=== PATIENT | female | born 1955 | race Caucasian/White ===

== ENCOUNTER 2023-04-01 06:42 | Outpatient (RCR) | payer MEDICARE, OTHER, SELFPAY | END 2023-04-01 23:59 | disposition home or self-care (01) | LOC: RST 06:42 | PROVIDERS: ATTENDING PHYSICIAN Student in an Organized Health Care Education/Training Program | DX: I69.318 Other symptoms and signs involving cognitive functions following cerebral infarction (principal); I69.328 Other speech and language deficits following cerebral infarction | CPT/HCPCS: 96125; 97167 ==

== ENCOUNTER 2023-04-27 07:12 | Outpatient (RCR) | payer MEDICARE, OTHER, SELFPAY | END 2023-04-27 23:59 | disposition home or self-care (01) | LOC: RPT 07:12 | PROVIDERS: ATTENDING PHYSICIAN Student in an Organized Health Care Education/Training Program | DX: I69.318 Other symptoms and signs involving cognitive functions following cerebral infarction (principal); I69.328 Other speech and language deficits following cerebral infarction; G20.A1 Parkinson's disease without dyskinesia, without mention of fluctuations; M54.31 Sciatica, right side | CPT/HCPCS: 97110; 97112; 97116; 97129; 97130; 97140; 97163; 97530; 97535 ==

== ENCOUNTER 2023-06-02 10:05 | Outpatient (RCR) | payer MEDICARE, OTHER, SELFPAY | END 2023-06-02 23:59 | disposition home or self-care (01) | LOC: RPT 10:05 | PROVIDERS: ATTENDING PHYSICIAN Student in an Organized Health Care Education/Training Program | DX: G20.A1 Parkinson's disease without dyskinesia, without mention of fluctuations (principal); M54.31 Sciatica, right side; I69.398 Other sequelae of cerebral infarction; Z73.6 Limitation of activities due to disability; I69.318 Other symptoms and signs involving cognitive functions following cerebral infarction; I69.328 Other speech and language deficits following cerebral infarction | CPT/HCPCS: 97110; 97112; 97129; 97130; 97530; 97535 ==

== ENCOUNTER 2023-06-30 09:11 | Outpatient (RCR) | payer MEDICARE, OTHER, SELFPAY | END 2023-06-30 23:59 | disposition home or self-care (01) | LOC: RPT 09:11 | PROVIDERS: ATTENDING PHYSICIAN Student in an Organized Health Care Education/Training Program | DX: I69.318 Other symptoms and signs involving cognitive functions following cerebral infarction (principal); I69.328 Other speech and language deficits following cerebral infarction; Z73.6 Limitation of activities due to disability | CPT/HCPCS: 97110; 97129; 97130; 97530; 97535 ==

== ENCOUNTER 2023-07-07 09:17 | Outpatient (RCR) | payer MEDICARE, OTHER, SELFPAY | END 2023-07-07 12:32 | disposition home or self-care (01) | LOC: RPT 09:17 | PROVIDERS: ATTENDING PHYSICIAN Student in an Organized Health Care Education/Training Program | DX: I69.318 Other symptoms and signs involving cognitive functions following cerebral infarction (principal); I69.328 Other speech and language deficits following cerebral infarction; Z73.6 Limitation of activities due to disability | CPT/HCPCS: 97129; 97130; 97530; 97535 ==

== ENCOUNTER → 2023-07-20 10:16 | Outpatient (REF) | payer MEDICARE, OTHER, SELFPAY | LOC: HWRAD 10:16 | PROVIDERS: ATTENDING PHYSICIAN Student in an Organized Health Care Education/Training Program | DX: N95.1 Menopausal and female climacteric states (principal); Z12.31 Encounter for screening mammogram for malignant neoplasm of breast; Z78.0 Asymptomatic menopausal state | CPT/HCPCS: 77063; 77067; 77080 ==

== ENCOUNTER 2023-07-26 13:13 | Day surgery (SDC) | payer MEDICARE, OTHER, SELFPAY ==
[2023-07-26 13:37] VITALS: BMI 16.6
--- NOTE | 2023-07-26 15:23 | ITS.CL.IMPLP ---
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
Implant Loop
Procedure Report:
ILR implant
Date of Procedure: July 26, 2023
Patient : 1955
Procedure: Insertable Loop Recorder implant
Indication: Cryptogenic stroke
Implant: Reveal Linq 1: [employer]; Model# LNQ22 ; Serial# [id number]
Technique: The patient was prepped and draped in the usual fashion. Local anesthetic was applied to the left prepectoral subcutaneous tissue. A subcutaneous pocket was created with blunt dissection. Hemostasis was excellent. The device was
placed in the pocket. The skin was closed with steri-strips. The estimated blood loss was minimal. There were no complications.
Final Programming: FVT 231 30/40 beats
VT 176 16 beats
Asystole 3 sec
Manuel 30 bpm for 4 beats
AF On AF only.
Conclusion: Uncomplicated insertable loop implant.
Recommendation: Routine Reveal care.
cc: Dr. Berny Hu
== END 2023-07-26 15:18 | disposition home or self-care (01) ==
LOC: CATH 13:13
PROVIDERS: ATTENDING PHYSICIAN Internal Medicine Cardiovascular Disease; FAMILY PHYSICIAN Student in an Organized Health Care Education/Training Program
DX: Z09 Encounter for follow-up examination after completed treatment for conditions other than malignant neoplasm (principal); Z86.73 Personal history of transient ischemic attack (TIA), and cerebral infarction without residual deficits
CPT/HCPCS: 33285; C1764

== ENCOUNTER 2024-03-30 15:42 | Outpatient (RCR) | payer MEDICARE, OTHER, SELFPAY | END 2024-03-30 23:59 | disposition home or self-care (01) | LOC: RPT 15:42 | PROVIDERS: ATTENDING PHYSICIAN Student in an Organized Health Care Education/Training Program | DX: G20.A1 Parkinson's disease without dyskinesia, without mention of fluctuations (principal); M54.31 Sciatica, right side; Z73.6 Limitation of activities due to disability | CPT/HCPCS: 97010; 97110; 97112; 97163; 97530 ==

== ENCOUNTER 2024-04-18 09:56 | Outpatient (RCR) | payer MEDICARE, OTHER, SELFPAY | END 2024-04-18 23:59 | disposition home or self-care (01) | LOC: RPT 09:56 | PROVIDERS: ATTENDING PHYSICIAN Student in an Organized Health Care Education/Training Program | DX: G20.A1 Parkinson's disease without dyskinesia, without mention of fluctuations (principal); M54.31 Sciatica, right side; Z73.6 Limitation of activities due to disability | CPT/HCPCS: 97010; 97110; 97140; 97530 ==

== ENCOUNTER 2024-05-11 06:23 | Day surgery (SDC) | payer MEDICARE, OTHER, SELFPAY | END 2024-05-11 12:02 | disposition home or self-care (01) | LOC: GI 06:23 | PROVIDERS: ATTENDING PHYSICIAN Internal Medicine | DX: Z12.11 Encounter for screening for malignant neoplasm of colon (principal); D12.8 Benign neoplasm of rectum; K63.5 Polyp of colon; Z86.0101 Personal history of adenomatous and serrated colon polyps; Z98.890 Other specified postprocedural states | CPT/HCPCS: 45385; 88305 ==

== ENCOUNTER 2024-05-30 08:11 | Outpatient (RCR) | payer MEDICARE, OTHER, SELFPAY | END 2024-05-30 23:59 | disposition home or self-care (01) | LOC: RST 08:11 | PROVIDERS: ATTENDING PHYSICIAN Student in an Organized Health Care Education/Training Program | DX: R47.1 Dysarthria and anarthria (principal); R47.89 Other speech disturbances; G20.A1 Parkinson's disease without dyskinesia, without mention of fluctuations | CPT/HCPCS: 92507; 92522 ==

== ENCOUNTER 2024-06-08 13:38 | Outpatient (RCR) | payer MEDICARE, OTHER, SELFPAY | END 2024-06-08 23:59 | disposition home or self-care (01) | LOC: RST 13:38 | PROVIDERS: ATTENDING PHYSICIAN Student in an Organized Health Care Education/Training Program | DX: R47.89 Other speech disturbances; R47.1 Dysarthria and anarthria; G20.A1 Parkinson's disease without dyskinesia, without mention of fluctuations; R13.12 Dysphagia, oropharyngeal phase; I69.318 Other symptoms and signs involving cognitive functions following cerebral infarction; I69.311 Memory deficit following cerebral infarction; I69.314 Frontal lobe and executive function deficit following cerebral infarction | CPT/HCPCS: 92526; 92610 ==

== ENCOUNTER → 2024-07-06 09:49 | Outpatient (REF) | payer MEDICARE, OTHER, SELFPAY | LOC: RST 09:49 | PROVIDERS: ATTENDING PHYSICIAN Student in an Organized Health Care Education/Training Program | DX: R13.12 Dysphagia, oropharyngeal phase (principal) | CPT/HCPCS: 74230; 92611 ==

== ENCOUNTER 2024-07-19 09:39 | Outpatient (RCR) | payer MEDICARE, OTHER, SELFPAY | END 2024-07-19 23:59 | disposition home or self-care (01) | LOC: RST 09:39 | PROVIDERS: ATTENDING PHYSICIAN Student in an Organized Health Care Education/Training Program | DX: G20.A1 Parkinson's disease without dyskinesia, without mention of fluctuations (principal); R47.1 Dysarthria and anarthria; R47.89 Other speech disturbances; R13.12 Dysphagia, oropharyngeal phase; I69.318 Other symptoms and signs involving cognitive functions following cerebral infarction; I69.311 Memory deficit following cerebral infarction; I69.314 Frontal lobe and executive function deficit following cerebral infarction | CPT/HCPCS: 92526 ==

== ENCOUNTER 2024-08-02 14:49 | Outpatient (RCR) | payer MEDICARE, OTHER, SELFPAY | END 2024-08-02 23:59 | disposition home or self-care (01) | LOC: RPT 14:49 | PROVIDERS: ATTENDING PHYSICIAN Psychiatry & Neurology Neurology; FAMILY PHYSICIAN Student in an Organized Health Care Education/Training Program | DX: G20.C Parkinsonism, unspecified (principal); G20.B2 Parkinson's disease with dyskinesia, with fluctuations (principal); Z73.6 Limitation of activities due to disability | CPT/HCPCS: 97110; 97112; 97116; 97163; 97166; 97530 ==

== ENCOUNTER 2024-08-08 13:32 | Outpatient (RCR) | payer MEDICARE, OTHER, SELFPAY | END 2024-08-08 23:59 | disposition home or self-care (01) | LOC: RST 13:32 | PROVIDERS: ATTENDING PHYSICIAN Student in an Organized Health Care Education/Training Program | DX: G20.A1 Parkinson's disease without dyskinesia, without mention of fluctuations (principal); R47.1 Dysarthria and anarthria; R47.89 Other speech disturbances; R13.12 Dysphagia, oropharyngeal phase; I69.318 Other symptoms and signs involving cognitive functions following cerebral infarction; I69.311 Memory deficit following cerebral infarction; I69.314 Frontal lobe and executive function deficit following cerebral infarction | CPT/HCPCS: 92507; 92526 ==

== ENCOUNTER 2024-08-11 14:20 | Outpatient (RCR) | payer MEDICARE, OTHER, SELFPAY | END 2024-08-11 23:59 | disposition home or self-care (01) | LOC: RPT 14:20 | PROVIDERS: ATTENDING PHYSICIAN Psychiatry & Neurology Neurology; FAMILY PHYSICIAN Student in an Organized Health Care Education/Training Program | DX: G20.B2 Parkinson's disease with dyskinesia, with fluctuations (principal); R26.89 Other abnormalities of gait and mobility; G20.C Parkinsonism, unspecified; R47.89 Other speech disturbances; R47.1 Dysarthria and anarthria; Z73.6 Limitation of activities due to disability; R13.12 Dysphagia, oropharyngeal phase | CPT/HCPCS: 97110; 97112; 97530 ==

== ENCOUNTER 2024-10-02 14:20 | Outpatient (RCR) | payer MEDICARE, OTHER, SELFPAY | END 2024-10-02 23:59 | disposition home or self-care (01) | LOC: RST 14:20 | PROVIDERS: ATTENDING PHYSICIAN Student in an Organized Health Care Education/Training Program | DX: G20.A1 Parkinson's disease without dyskinesia, without mention of fluctuations (principal); R47.1 Dysarthria and anarthria; R47.89 Other speech disturbances; R13.12 Dysphagia, oropharyngeal phase; I69.318 Other symptoms and signs involving cognitive functions following cerebral infarction; I69.311 Memory deficit following cerebral infarction; I69.314 Frontal lobe and executive function deficit following cerebral infarction | CPT/HCPCS: 92507; 92526 ==

== ENCOUNTER → 2024-10-02 15:12 | Outpatient (REF) | payer MEDICARE, OTHER, SELFPAY | LOC: RAD 15:12 | PROVIDERS: ATTENDING PHYSICIAN Internal Medicine; FAMILY PHYSICIAN Student in an Organized Health Care Education/Training Program | DX: M25.551 Pain in right hip (principal) | CPT/HCPCS: 73502 ==

== ENCOUNTER 2024-10-12 11:47 | Outpatient (RCR) | payer MEDICARE, OTHER, SELFPAY | END 2024-10-12 23:59 | disposition home or self-care (01) | LOC: RST 11:47 | PROVIDERS: ATTENDING PHYSICIAN Student in an Organized Health Care Education/Training Program | DX: G20.A1 Parkinson's disease without dyskinesia, without mention of fluctuations (principal); R47.1 Dysarthria and anarthria; R47.89 Other speech disturbances; R13.12 Dysphagia, oropharyngeal phase; I69.318 Other symptoms and signs involving cognitive functions following cerebral infarction; I69.311 Memory deficit following cerebral infarction; I69.314 Frontal lobe and executive function deficit following cerebral infarction | CPT/HCPCS: 92507; 92526; 92610 ==

== ENCOUNTER 2024-10-30 10:10 | Outpatient (RCR) | payer MEDICARE, OTHER, SELFPAY | END 2024-10-30 23:59 | disposition home or self-care (01) | LOC: RPT 10:10 | PROVIDERS: ATTENDING PHYSICIAN Internal Medicine | DX: G20.A1 Parkinson's disease without dyskinesia, without mention of fluctuations (principal); M25.551 Pain in right hip; Z73.6 Limitation of activities due to disability; R26.89 Other abnormalities of gait and mobility; R26.2 Difficulty in walking, not elsewhere classified; M62.81 Muscle weakness (generalized) | CPT/HCPCS: 97010; 97110; 97140; 97163; 97530 ==

== ENCOUNTER 2024-11-08 08:29 | Day surgery (SDC) | payer MEDICARE, OTHER, SELFPAY ==
[2024-11-08] VITALS (8 sets, daily range): BP systolic 120–186; BP diastolic 79–107; BMI 18.2
--- NOTE | 2024-11-08 09:37 | PTCARENOTE ---
Pt's blood pressure is 186/104 and 185/106 both on the right arm. Left arm is 177/107. Pt is asymptomatic and did not take her BP meds today. Dr Cortez aware and at pt bedside. Will continue to monitor.
--- NOTE | 2024-11-08 11:00 | ITS.CL.IMPLP ---
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
Implant Loop
Procedure Report:
Primary Physician: Dr Rosalee Barth
Primary Social Media Developer: Dr Yfn Hu
Procedure Date: 11/08/2024
Procedure:
1. Removal of Implanted Loop Recorder
History/Indication:
1. See office H&P for complete history.
2. Patient is a pleasant 69-year-old female with a past medical history significant for CVA 03/2023, hypertension, hyperlipidemia, Parkinson's who underwent ILR implant 07/2023. No evidence of arrhythmias noted on this event monitor per office
documentation. Patient with continued irritation at device site expressing wish for removal.
Methods:
After informed consent was obtained, the patient was brought to the EP laboratory. Continuous ECG, blood pressure, and pulse oximetry were initiated. Sedation was not required.
The left chest was prepared and draped in a sterile fashion. A time-out was called. Local anesthesia was injected in the subcutaneous tissue overlying the ILR. An incision was made into the chronic scar. The subcutaneous tissue was dissected the
level of the chronic capsule. The capsule was opened and the ILR was removed.
The pocket was flushed with antibiotic solution and hemostasis was assured. Manual pressure was applied until hemostasis resulted. Topical skin adhesive was applied to the skin.
Explanted device: [employer] Model: LNQII, Serial#[id number]
Conclusions:
1. Successful removal of ILR
Recommendations:
1. Discharge to home
2. Follow-up will be arranged in the office 7-10 days post-discharge
Manoj Wood, DO, FACC, [facility]
cc: Dr Rosalee Barth; Dr Yfn Hu
--- NOTE | 2024-11-08 12:19 | PTCARENOTE ---
Pt was due to take own medication carbidopa-levidopa. While on the phone with pharmacy, pt's arrived to pt bedside and gave pt her own med before RN could have pill verified by pharmacy.
== END 2024-11-08 13:00 | disposition home or self-care (01) ==
LOC: CATH 08:29
PROVIDERS: ATTENDING PHYSICIAN Internal Medicine Cardiovascular Disease; FAMILY PHYSICIAN Student in an Organized Health Care Education/Training Program; OTHER PHYSICIAN Internal Medicine Cardiovascular Disease
DX: Z09 Encounter for follow-up examination after completed treatment for conditions other than malignant neoplasm (principal); Z86.73 Personal history of transient ischemic attack (TIA), and cerebral infarction without residual deficits; I10 Essential (primary) hypertension; E78.5 Hyperlipidemia, unspecified; G20.A1 Parkinson's disease without dyskinesia, without mention of fluctuations
CPT/HCPCS: 33286

== ENCOUNTER 2024-11-24 10:15 | Outpatient (RCR) | payer MEDICARE, OTHER, SELFPAY | END 2024-11-24 23:59 | disposition home or self-care (01) | LOC: RPT 10:15 | PROVIDERS: ATTENDING PHYSICIAN Internal Medicine | DX: G20.A1 Parkinson's disease without dyskinesia, without mention of fluctuations (principal); M25.551 Pain in right hip; Z73.6 Limitation of activities due to disability; R26.89 Other abnormalities of gait and mobility; R26.2 Difficulty in walking, not elsewhere classified; R29.6 Repeated falls | CPT/HCPCS: 97110; 97140; 97530 ==

== ENCOUNTER → 2024-12-05 14:38 | Outpatient (REF) | payer MEDICARE, OTHER, SELFPAY | LOC: RAD 14:38 | PROVIDERS: ATTENDING PHYSICIAN Student in an Organized Health Care Education/Training Program | DX: R10.31 Right lower quadrant pain (principal); M17.11 Unilateral primary osteoarthritis, right knee | CPT/HCPCS: 76882 ==

== ENCOUNTER → 2024-12-27 18:33 | Outpatient (REF) | payer MEDICARE, OTHER, SELFPAY | LOC: WDC 18:33 | PROVIDERS: ATTENDING PHYSICIAN Student in an Organized Health Care Education/Training Program | DX: Z12.31 Encounter for screening mammogram for malignant neoplasm of breast (principal) | CPT/HCPCS: 77063; 77067 ==

== ENCOUNTER 2024-12-28 11:03 | Outpatient (RCR) | payer MEDICARE, OTHER, SELFPAY | END 2024-12-28 23:59 | disposition home or self-care (01) | LOC: RPT 11:03 | PROVIDERS: ATTENDING PHYSICIAN Internal Medicine | DX: G20.A1 Parkinson's disease without dyskinesia, without mention of fluctuations (principal); M25.551 Pain in right hip; Z73.6 Limitation of activities due to disability; R26.89 Other abnormalities of gait and mobility; R26.2 Difficulty in walking, not elsewhere classified; R29.6 Repeated falls | CPT/HCPCS: 97110; 97112; 97530 ==

== ENCOUNTER 2025-01-05 12:33 | Outpatient (RCR) | payer MEDICARE, OTHER, SELFPAY | END 2025-01-05 23:59 | disposition home or self-care (01) | LOC: RPT 12:33 | PROVIDERS: ATTENDING PHYSICIAN Internal Medicine | DX: G20.A1 Parkinson's disease without dyskinesia, without mention of fluctuations (principal); M25.551 Pain in right hip; Z73.6 Limitation of activities due to disability; R26.89 Other abnormalities of gait and mobility; R26.2 Difficulty in walking, not elsewhere classified; R29.6 Repeated falls | CPT/HCPCS: 97110; 97530 ==

== ENCOUNTER → 2025-01-30 14:55 | Outpatient (REF) | payer MEDICARE, OTHER, SELFPAY | LOC: MRI 3T 14:55 | PROVIDERS: ATTENDING PHYSICIAN Student in an Organized Health Care Education/Training Program | DX: Z86.73 Personal history of transient ischemic attack (TIA), and cerebral infarction without residual deficits (principal); R41.3 Other amnesia | CPT/HCPCS: 70551 ==

== ENCOUNTER 2025-02-07 14:05 | Outpatient (RCR) | payer MEDICARE, OTHER, SELFPAY | END 2025-02-07 23:59 | disposition home or self-care (01) | LOC: RST 14:05 | PROVIDERS: ATTENDING PHYSICIAN Student in an Organized Health Care Education/Training Program | DX: G20.A1 Parkinson's disease without dyskinesia, without mention of fluctuations (principal); M25.551 Pain in right hip; R26.89 Other abnormalities of gait and mobility; Z73.6 Limitation of activities due to disability ==

== ENCOUNTER 2025-02-26 13:34 | Outpatient (RCR) | payer MEDICARE, OTHER, SELFPAY | END 2025-02-26 23:59 | disposition home or self-care (01) | LOC: ROT 13:34 | PROVIDERS: ATTENDING PHYSICIAN Student in an Organized Health Care Education/Training Program | DX: R41.3 Other amnesia (principal); Z73.6 Limitation of activities due to disability; R41.89 Other symptoms and signs involving cognitive functions and awareness; G20.A1 Parkinson's disease without dyskinesia, without mention of fluctuations; R26.89 Other abnormalities of gait and mobility | CPT/HCPCS: 97167; 97530; 97535 ==

== ENCOUNTER 2025-03-05 09:29 | Emergency (ER) | payer MEDICARE, OTHER, SELFPAY ==
[2025-03-05 09:35] VITALS: BP 152/93
--- NOTE | 2025-03-05 09:57 | ED.GENMED ---
History of Present Illness
<Desi Rodriguez MD, Resident - Last Filed: 03/05/25 10:35>
General
Chief Complaint: Head Injury
Source: patient and significant other
Exam Limitations: none
Time Seen by Provider: 03/05/25 09:56
Nursing documentation reviewed up to this point in time: agreed with
History of Present Illness
History of Present Illness:
69yo F with a hx of Parkinson's dz & prior CVA who presents following fall with head trauma yesterday.
Per pt & at bedside, last night she got up to go to the bathroom and had an episode of 'freezing' motion and feeling unsteady on her way back from the toilet. Fell against the wall and hit her L hand, broke L nails, and hit the back of her
head. Occipital region of head had a small lump, no bleeding noted, they put ice pack on it. Pt takes clonazepam every night before bed, which also makes her feel woozy and off-balance. Rx by neurologist/Parkinson specialist. They came to ED this am
just to be safe. She denies any DOOLEY or vision changes. No palpitations preceding fall or lightheadedness. Pt takes 81mg aspirin daily, no anticoagulants.
Past History
<Desi Rodriguez MD, Resident - Last Filed: 03/05/25 10:35>
Past History
ED Past Medical History: Cancer (Melanoma), CVA, HTN, Hypercholesterolemia and Other (parkinson)
Social History
Tobacco: Non-smoker
Alcohol: Daily (wine 1-2 glasses)
Personal:
Living: with family
Review of Systems
<Desi Rodriguez MD, Resident - Last Filed: 03/05/25 10:35>
Review of Systems
All Other Systems: ROS reviewed and negative except as documented in HPI and ROS
Constitutional: Reports no symptoms
EENT: Reports no symptoms
Respiratory: Reports no symptoms
Cardiac: Reports no symptoms
ABD/GI: Reports no symptoms
: Reports no symptoms
Musculoskeletal: Reports no symptoms
Skin: Reports no symptoms
Neurological: Reports other (resting tremors )
Psychiatric: Reports no symptoms
Phy Exam
<Desi Rodriguez MD, Resident - Last Filed: 03/05/25 10:35>
General Physical Exam
General Presentation: well appearing
General age: appears stated age
General Skin: warm and dry
General Habitus: normal
General Mental: alert
Eye Exam
Eye Exam: EOMI
Cardiovascular Exam
Cardiovascular Exam: regular rate/rhythm and no edema
Heart Sounds: normal
Pulmonary Exam
Pulmonary Exam: no respiratory distress
Gastrointestinal Exam
Gastrointestinal Exam: non distended
Neurological Exam
Neurological Exam: alert, no motor deficits, speech normal and other (resting tremor )
Musculoskeletal Exam
Musculoskeletal Exam: no edema
Skin Exam
Skin Exam: normal color, warm/dry and other (no abrasion to back of head )
Psychiatric Exam
Psychiatric Exam: normal mood/affect
Course
<Desi Rodriguez MD, Resident - Last Filed: 03/05/25 10:35>
Orders/Labs/Results
Orders:
Orders
03/05/25 09:44
CT Head W/o Iv Contrast Urgent
Comment:
Reason For Exam: fell back and hit head, on baby ASA
Vital Signs
Initial and Last Documented VS:
Initial Vital Signs
Temp Pulse Resp BP Pulse Ox
98.5 F 93 16 152/93 98
03/05/25 09:35 03/05/25 09:35 03/05/25 09:35 03/05/25 09:35 03/05/25 09:35
Last Documented Vital Signs
Temp Pulse Resp BP Pulse Ox
98.5 F 93 16 152/93 98
03/05/25 09:35 03/05/25 09:35 03/05/25 09:35 03/05/25 09:35 03/05/25 10:13
<Jerry Melissa DO - Last Filed: 03/05/25 10:51>
Orders/Labs/Results
Orders:
Orders
03/05/25 09:44
CT Head W/o Iv Contrast Urgent
Comment:
Reason For Exam: fell back and hit head, on baby ASA
Vital Signs
Initial and Last Documented VS:
Initial Vital Signs
Temp Pulse Resp BP Pulse Ox
98.5 F 93 16 152/93 98
03/05/25 09:35 03/05/25 09:35 03/05/25 09:35 03/05/25 09:35 03/05/25 09:35
Last Documented Vital Signs
Temp Pulse Resp BP Pulse Ox
98.5 F 93 16 152/93 98
03/05/25 09:35 03/05/25 09:35 03/05/25 09:35 03/05/25 09:35 03/05/25 10:13
<Desi Rodriguez MD, Resident - Last Filed: 03/05/25 10:35>
MDM/Problems Addressed
Differential Diagnosis Includes:
Fall in s/o clonazepam leading to lightheadedness c/b existing Parkinson's dz/imbalance/motor freezing
R/o ICH with head CT
No sx c/f cardiogenic syncope, no LOC or palpitations
MDM/Problems Addressed:
- CT head wo contrast
- Okay for discharge home
<Desi Rodriguez MD, Resident - Last Filed: 03/05/25 10:35>
*Pulse Oximetry
SaO2: 98
Oxygen Mode of Delivery: Room air
Patient hypoxic: no
*Critical Care Note
Total Time (30-74mins, 75-104mins- exclusive of procedures): Not Applicable
ED Attending Note
<Desi Rodriguez MD, Resident - Last Filed: 03/05/25 10:35>
-
Portions of this chart may have been created with voice recognition software.� Occasional wrong word or��sound alike� substitutions may have occurred due to the inherent limitations of voice recognition software.
<Jerry Melissa DO - Last Filed: 03/05/25 10:51>
ED Attending Note
Patient seen and examined by attending physician: Yes
I performed a history and physical exam of patient and discussed management with resident, I reviewed resident's note and agree with documented findings and plan of care.: Yes
ED Attending Note:
69-year-old female presents with after a fall. Patient history of Parkinson's disease also takes benzodiazepines at night to sleep. Patient states that unfortunate with the Parkinson's when she does her balance she falls fast. Exam: Very small
hematoma at the posterior scalp. No midline C-spine tenderness. No midline thoracic spine tenderness. Cranial nerves are intact. Resting tremor noted. No focal motor weakness. Assessment and plan: CT negative. No indication for any additional
imaging and patient feels well. Okay for discharge
Discharge Plan
Departure
Patient Disposition: Home (Routine Discharge)
Date of Disposition: 03/05/25
Time of Disposition: 10:34
Patient with high blood pressure during this ER visit?: No
Condition: Good
Covid-19: Not Applicable
Discharge Problem:
Fall
Prescriptions:
No Action
polyethylene glycol 3350 [Miralax] 17 gram Powder In Packet
17 g PO DAILY
atorvastatin 10 mg Tablet
10 mg PO DAILY
melatonin 10 mg Tablet
10 mg PO HS
aspirin 81 mg Tablet,Delayed Release (Dr/Ec)
81 mg PO DAILY Qty: 1 0RF
paroxetine HCl [Paxil] 10 mg Tablet
10 mg PO DAILY
clonazepam 0.5 mg tablet
0.25 mg PO HS
lisinopril 5 mg tablet
5 mg PO DAILY
Crexont 70-280 mg Capsule,Ir -Extend Rel,Biphase
1 cap PO QID
Referrals:
Rosalee Barth MD [Family Provider, Internal Medicine]
Activity Restrictions/Additional Instructions:
You were seen in the ED for evaluation after a fall with trauma to your head. CT scan of your head didn't show any bleeding in the brain. There was no abrasion on the back of your head.
Return to the ED if you have any loss of consciousness, vision changes, or severe headache.
Interventions
Interventions:
*Risk Screen - Suicide Last Done: 03/05/25 09:35
*General Assessment Last Done: 03/05/25 09:35
*Neglect/Abuse Screening Last Done: 03/05/25 09:35
Discharge Date and Time
Print Language: HAITIAN
== END 2025-03-05 10:44 | disposition home or self-care (01) ==
LOC: EMR 09:29
PROVIDERS: EMERGENCY PHYSICIAN Emergency Medicine; FAMILY PHYSICIAN Student in an Organized Health Care Education/Training Program
DX: S00.03XA Contusion of scalp, initial encounter (principal); W18.39XA Other fall on same level, initial encounter; W22.09XA Striking against other stationary object, initial encounter; E78.00 Pure hypercholesterolemia, unspecified; I10 Essential (primary) hypertension; G20.A1 Parkinson's disease without dyskinesia, without mention of fluctuations; Z86.73 Personal history of transient ischemic attack (TIA), and cerebral infarction without residual deficits; Z85.820 Personal history of malignant melanoma of skin; Z79.899 Other long term (current) drug therapy
CPT/HCPCS: 99284; 70450

== ENCOUNTER 2025-04-02 09:34 | Outpatient (RCR) | payer MEDICARE, OTHER, SELFPAY | END 2025-04-02 23:59 | disposition home or self-care (01) | LOC: ROT 09:34 | PROVIDERS: ATTENDING PHYSICIAN Student in an Organized Health Care Education/Training Program | DX: G20.A1 Parkinson's disease without dyskinesia, without mention of fluctuations (principal); R41.3 Other amnesia (principal); Z73.6 Limitation of activities due to disability; R41.89 Other symptoms and signs involving cognitive functions and awareness; R26.89 Other abnormalities of gait and mobility; Z91.81 History of falling | CPT/HCPCS: 97110; 97112; 97116; 97162; 97530; 97535 ==